=== PATIENT | male | born 1985 | race Caucasian/White ===

== ENCOUNTER 2020-05-06 22:43 | Inpatient (IN) ==
[2020-05-06] MEDS ORDERED: *HR* Dextrose 50 % in Water (Vial) 50 ML VIAL ONE ×2 (22:48→23:24)
[2020-05-06] MEDS ORDERED: D10% in Water 500 ML ONE (22:48)
[2020-05-06] MEDS ORDERED: D10% in Water 500 ML IVC SCH (23:00)
[2020-05-06] MEDS ORDERED: *HR* Dextrose 50 % in Water (Vial) 50 ML VIAL IVP ONE (23:00)
[2020-05-06 23:09] LABS: Basophils % 0.2 %; Hematocrit 48.6 % (37.5-50.1); Hemoglobin 16.3 g/dL (12.9-16.9); Immature Granulocytes % 0.5 % (0-4); Lymphocytes # 0.6 K/mcL (0.6-4.6); Lymphocytes % 3.8 %; Mean Corpuscular HGB Conc 33.5 g/dL (31.6-35.5); Mean Corpuscular Hemoglobin 30.5 pg (28.0-33.3); Mean Corpuscular Volume 90.8 fL (83.0-100.0); Mean Platelet Volume 8.3 fL (9.4-12.4); Monocytes # 0.7 K/mcL (0.0-1.3); Monocytes % 4.3 %; Neutrophils # 13.9 K/mcL (1.6-8.9); Platelet Count 373 K/mcL (140-400); Red Blood Count 5.35 M/mcL (4.19-5.50); Red Cell Distribution Width 12.5 % (11.5-14.5); Segmented Neutrophils % 91.2 %; White Blood Count 15.2 K/mcL (4.3-11.1)
[2020-05-06 23:16] LABS: Prothrombin Time 11.5 Seconds (9.4-12.1)
[2020-05-06 23:19] LABS: Activated Partial Thrombo Time 26.5 Seconds (26.0-36.0)
[2020-05-06 23:32] LABS: Alanine Aminotransferase 18 Units/L (7-52); Albumin/Globulin Ratio 1.9 (1.1-2.2); Alkaline Phosphatase 51 Units/L (34-104); Aspartate Amino Transferase 25 Units/L (13-39); BUN/Creatinine Ratio 12 (6-26); Bilirubin,Direct 0.1 mg/dL (0.0-0.2); Bilirubin,Indirect 0.4 mg/dL (0.0-1.0); Bilirubin,Total 0.5 mg/dL (0.3-1.0); Blood Urea Nitrogen 12 mg/dL (6-20); Calcium 9.1 mg/dL (8.6-10.3); Carbon Dioxide 16 mEq/L (23-29); Chloride 105 mEq/L (98-107); Ethanol 20 mg/dL (Less than 10); Globulin 2.7 g/dL (2.4-3.5); Glucose 171 mg/dL (70-105); Osmolality,Calculated 298 (280-300); Potassium 2.7 mEq/L (3.5-5.1); Sodium 142 mEq/L (136-145); Total Protein 7.7 g/dL (6.4-8.9); eGFR For African Americans > 60 (> 60); eGFR For Non-African Americans > 60 (> 60)
[2020-05-06 23:33] LABS: Acetaminophen < 10 mcg/mL (10-20); Salicylate < 2.5 mg/dL (15.0-30.0)
[2020-05-06] MEDS ORDERED: WATER IVC ONE (23:45)
[2020-05-06] MEDS ORDERED: D5 IVC ONE (23:45)
[2020-05-06] MEDS ORDERED: [UNRECOGNIZED DRUG - OTHER] IVC ONE (23:45)
[2020-05-06] MEDS ORDERED: DEXTROSE 50% IVC ONE (23:45)
[2020-05-06] MEDS ORDERED: POTASSIUM CHLORIDE IVC ONE (23:45)
[2020-05-06] MEDS ORDERED: Ondansetron 4 MG/2 ML VIAL IVP ONE (23:52)
[2020-05-07 00:13] LABS: Troponin I < 0.03 ng/mL (< 0.04)
[2020-05-07 00:19] LABS: Bacteria,Urine Few per hpf (None-Few); Bilirubin,Urine Negative (Negative); Blood,Urine Moderate (Negative); Clarity,Urine Clear (Clear); Color,Urine Light-Yellow (Yellow); Glucose,Urine (UA) 100 mg/dL (Normal); Hyaline Casts,Urine Many per lpf (None Seen); Ketones,Urine 10 mg/dL (Negative); Leukocyte Esterase,Urine Negative (Negative); Mucus,Urine Few per lpf (None-Few); Nitrite,Urine Negative (Negative); PH,Urine 5.5 pH Units (5.0-8.0); Protein,Urine >=300 mg/dL (Neg-Trace); RBC,Urine 0-3 per hpf (0-3); Specific Gravity,Urine 1.018 (1.010-1.025); Squamous Epithelial Cell,Urine Few per hpf (None-Few); Urobilinogen,Urine Normal (Normal); WBC,Urine 0-3 per hpf (0-3)
[2020-05-07 00:29] LABS: Amphetamine Screen,Urine Negative ng/mL (Cutoff=1000); Barbiturate Screen,Urine Negative ng/mL (Cutoff=200); Benzodiazepines Screen,Urine Negative ng/mL (Cutoff=200); Cannabinoid Screen,Urine Positive ng/mL (Cutoff = 50); Cocaine Screen,Urine Negative ng/mL (Cutoff= 300); Opiate Screen,Urine Negative ng/mL (Cutoff=300); Phencyclidine Screen,Urine Negative ng/mL (Cutoff=25)
[2020-05-07] MEDS ORDERED: D10% in Water 500 ML ONE (00:52)
[2020-05-07] MEDS ORDERED: *HR* Dextrose 50 % in Water (Vial) 50 ML VIAL ONE (00:53)
[2020-05-07] MEDS ORDERED: Dextrose 50 % in Water (Vial) 50 ML in D5% in 0.2% NACL 500 ML IVC SCH (01:00)
[2020-05-07] MEDS ORDERED: Naloxone 0.4 MG/ML INJ IVP PRN ×2 (01:25→10:41)
[2020-05-07] MEDS ORDERED: Ondansetron 4 MG/2 ML VIAL IVP PRN ×2 (01:30→10:41)
[2020-05-07] MEDS ORDERED: Dextrose Gel 15 GM/37.5 ML TUBE PO PRN ×4 (01:35→10:41)
[2020-05-07] MEDS ORDERED: *HR* Enoxaparin 40 MG/0.4 ML SYRINGE SQ SCH (06:00)
[2020-05-07 07:06] LABS: Hematocrit 46.9 % (37.5-50.1); Hemoglobin 16.2 g/dL (12.9-16.9); Mean Corpuscular HGB Conc 34.5 g/dL (31.6-35.5); Mean Corpuscular Hemoglobin 30.6 pg (28.0-33.3); Mean Corpuscular Volume 88.7 fL (83.0-100.0); Mean Platelet Volume 8.3 fL (9.4-12.4); Platelet Count 341 K/mcL (140-400); Red Blood Count 5.29 M/mcL (4.19-5.50); Red Cell Distribution Width 12.6 % (11.5-14.5); White Blood Count 12.9 K/mcL (4.3-11.1)
[2020-05-07 07:33] LABS: BUN/Creatinine Ratio 14 (6-26); Blood Urea Nitrogen 13 mg/dL (6-20); Calcium 9.6 mg/dL (8.6-10.3); Carbon Dioxide 25 mEq/L (23-29); Chloride 104 mEq/L (98-107); Glucose 31 mg/dL (70-105); Magnesium 1.7 mg/dL (1.6-2.6); Osmolality,Calculated 284 (280-300); Phosphorous 3.3 mg/dL (2.7-4.5); Potassium 3.5 mEq/L (3.5-5.1); Sodium 139 mEq/L (136-145); eGFR For African Americans > 60 (> 60); eGFR For Non-African Americans > 60 (> 60)
[2020-05-08 01:39] LABS: Basophils % 0.3 %; Eosinophils # 0.1 K/mcL (0.0-0.6); Eosinophils % 1.1 %; Hematocrit 44.4 % (37.5-50.1); Hemoglobin 15.3 g/dL (12.9-16.9); Immature Granulocytes % 0.5 % (0-4); Lymphocytes # 1.9 K/mcL (0.6-4.6); Lymphocytes % 21.5 %; Mean Corpuscular HGB Conc 34.5 g/dL (31.6-35.5); Mean Corpuscular Hemoglobin 31.6 pg (28.0-33.3); Mean Corpuscular Volume 91.7 fL (83.0-100.0); Mean Platelet Volume 8.6 fL (9.4-12.4); Monocytes # 0.6 K/mcL (0.0-1.3); Neutrophils # 6.2 K/mcL (1.6-8.9); Platelet Count 244 K/mcL (140-400); Red Blood Count 4.84 M/mcL (4.19-5.50); Red Cell Distribution Width 12.7 % (11.5-14.5); Segmented Neutrophils % 69.6 %; White Blood Count 8.9 K/mcL (4.3-11.1)
[2020-05-08 02:10] LABS: BUN/Creatinine Ratio 20 (6-26); Blood Urea Nitrogen 18 mg/dL (6-20); Calcium 9.3 mg/dL (8.6-10.3); Carbon Dioxide 25 mEq/L (23-29); Chloride 104 mEq/L (98-107); Glucose 128 mg/dL (70-105); Osmolality,Calculated 290 (280-300); Sodium 138 mEq/L (136-145); eGFR For African Americans > 60 (> 60); eGFR For Non-African Americans > 60 (> 60)
[2020-05-08] MEDS ORDERED: *HR* Enoxaparin 40 MG/0.4 ML SYRINGE SQ SCH (06:00)
[2020-05-08 07:24] VITALS: BP 127/76
== END 2020-05-08 13:10 | DRG 918 ==
LOC: EMEROOARM 22:43 → ICNU 22:43 → 3BNU 05-07 10:55
PROVIDERS: ADMIT Family Medicine; ATTEND Family Medicine

== ENCOUNTER 2020-05-08 13:18 | Inpatient (IN) ==
[2020-05-08] MEDS ORDERED: *HR* LORazepam 1 MG TABLET PO PRN (14:18)
[2020-05-08] MEDS ORDERED: *HR* LORazepam 2 MG/ML VIAL IM PRN (14:18)
[2020-05-08] MEDS ORDERED: Mag Hydrox/Al Hydrox/Simeth 30 ML UDC PO PRN (14:18)
[2020-05-08] MEDS ORDERED: Haloperidol Lactate 5 MG/ML VIAL IM PRN (14:18)
[2020-05-08] MEDS ORDERED: hydrOXYzine pamoate 25 MG CAPSULE PO PRN (14:18)
[2020-05-08] MEDS ORDERED: Acetaminophen 325 MG TABLET PO PRN (14:18)
[2020-05-08] MEDS ORDERED: MOM Conc 10 ML UD.LIQ PO PRN (14:18)
[2020-05-08] MEDS ORDERED: haloperidoL 5 MG TABLET PO PRN (14:18)
[2020-05-08] MEDS ORDERED: traZODone 50 MG TABLET PO PRN (14:18)
[2020-05-08] MEDS ORDERED: SECUKINUMAB 300 MG SQ SCH (14:30)
[2020-05-09] MEDS: Neosporin OINT 15 GM TUBE TP PRN (18:44)
[2020-05-10] MEDS ORDERED: cloNIDine HCL 0.1 MG TABLET PO ONE (21:04)
[2020-05-10] MEDS: Neosporin OINT 15 GM TUBE TP PRN (21:18)
[2020-05-11] MEDS ORDERED: Naltrexone HCl 50 MG TABLET PO SCH (09:15)
[2020-05-11 09:17] VITALS: BP 169/93
== END 2020-05-11 11:15 | disposition home or self-care (01) | DRG 885 ==
LOC: 1ANU 13:18
PROVIDERS: ADMIT Psychiatry & Neurology Psychiatry; ATTEND Psychiatry & Neurology Psychiatry